=== PATIENT | female | born 1965 | race African-American/Black ===

== ENCOUNTER 2019-03-05 09:02 | Day surgery (SDC) | payer BC ==
[2019-03-02 10:22] VITALS: BMI 24.7
[2019-03-05 09:46] VITALS: TEMP 98.1
[2019-03-05] MEDS ORDERED: PROPOFOL 20 ML ONE (10:31)
[2019-03-05 12:07] VITALS: BP 96/60; PULSE 62
== END 2019-03-05 12:00 | disposition home or self-care (01) ==
LOC: FASU-ENDO 09:02
PROVIDERS: ATTEND Internal Medicine Gastroenterology
PROC: 0DJD8ZZ Inspection of Lower Intestinal Tract, Via Natural or Artificial Opening Endoscopic (ICD-10-PCS; principal; 2019-03-05 11:11)
DX: Z12.11 Encounter for screening for malignant neoplasm of colon (principal)
CPT/HCPCS: 84703